=== PATIENT | female | born 1980 | race Caucasian/White ===

== ENCOUNTER → 2016-10-30 | Outpatient (CLI) | payer OTHER | LOC: FIMAGING 06:59 | PROVIDERS: ATTEND Obstetrics & Gynecology | DX: Z36 Encounter for antenatal screening of mother (principal); Z3A.20 20 weeks gestation of pregnancy; O09.512 Supervision of elderly primigravida, second trimester; O26.892 Other specified pregnancy related conditions, second trimester ==

== ENCOUNTER → 2016-12-04 | Outpatient (CLI) | payer OTHER | LOC: FIMAGING 12:31 | PROVIDERS: ATTEND Obstetrics & Gynecology | DX: Z36 Encounter for antenatal screening of mother (principal); O09.522 Supervision of elderly multigravida, second trimester; Z3A.24 24 weeks gestation of pregnancy ==

== ENCOUNTER 2016-12-05 19:39 | Observation (INO) | payer OTHER ==
--- NOTE | 2016-12-05 21:16 | SOAPPROG ---
SOAP Progress Note Assessment/Plan: Assessment: at 25w0d s/p fall, no injury to abdomen No e/o abruption, PTL, distress Plan: Discharge home f/u as scheduled in office Call for any new symptoms or concerns Tylenol/ice for hip/knee prn 12/05/16 21:15 Subjective: 25w0d, . Uncomplicated first . Slipped on stairs today, fell down 1.5 steps, hit left knee and hip. No abdominal trauma. No abdominal pain, contractions, bleeding. Active baby. Objective: 113/72, 85, 36.6 Gen: NAD Resp: unlabored CV; RRR Abd: gravid, soft, nontender, no bruising Ext: no edema, no bruising, normal pulses FHR baseline 130, mod kishore, + 10x10 accels, no decels [place]: none ICD10 Worksheet Patient Problems: Problems Problem Status Onset 25 weeks gestation of Acute Fall Acute
== END 2016-12-05 21:20 | disposition home or self-care (01) ==
LOC: FLD 19:39
PROVIDERS: ADMIT Obstetrics & Gynecology; ATTEND Obstetrics & Gynecology
DX: S79.912A Unspecified injury of left hip, initial encounter (principal); S89.92XA Unspecified injury of left lower leg, initial encounter; Z3A.25 25 weeks gestation of pregnancy; W19.XXXA Unspecified fall, initial encounter
CPT/HCPCS: G0378

== ENCOUNTER → 2017-01-18 | Outpatient (CLI) | payer OTHER | LOC: FIMAGING 09:37 | PROVIDERS: ATTEND Obstetrics & Gynecology | DX: O09.513 Supervision of elderly primigravida, third trimester (principal); Z3A.32 32 weeks gestation of pregnancy ==